=== PATIENT | male | born 1980 | race Caucasian/White ===

== ENCOUNTER 2021-06-22 16:00 | Emergency (ER) | payer OTHER ==
[~2021-06-22] VITALS: Ht 180.3 cm; Wt 113.4 kg
== END 2021-06-22 18:40 | disposition home or self-care (01) ==
LOC: ER1 16:00
DX: U07.1 COVID-19 (principal); Z23 Encounter for immunization; I10 Essential (primary) hypertension; J45.909 Unspecified asthma, uncomplicated; Z87.891 Personal history of nicotine dependence; Z88.2 Allergy status to sulfonamides; Z88.8 Allergy status to other drugs, medicaments and biological substances
CPT/HCPCS: 99283; M0243